=== PATIENT | male | born 1950 | race American Indian/Alaskan Native ===

== ENCOUNTER 2016-04-06 08:14 | Day surgery (SDC) | payer MEDICARE, OTHER ==
[~2016-04-06 08:14] MED LIST: NACL 0.9% 1000 ML 1,000 ML IV SCH; PEPCID PO NR; VERSED IV NR
[2016-04-06] MEDS ORDERED: GARAMYCIN 120 MG in NACL 0.9% 100 ML IV SCH (08:30)
--- NOTE | 2016-04-06 08:52 | Anesthesia Consultation ---
Anesthesia Consult and Med Hx Date of service: 04/06/16 - Airway Anesthetic Teeth Evaluation: Good ROM Head & Neck: Adequate Mental/Hyoid Distance: Adequate Mallampati Class: Class II Intubation Access Assessment: Probably Good - Pulmonary Exam CTA: Yes - Cardiac Exam Cardiac Exam: RRR - Pre-Operative Health Status ASA Pre-Surgery Classification: ASA3 Proposed Anesthetic Plan: General - Pulmonary Hx Smoking: Yes Hx Asthma: No SOB: No Hx Sleep Apnea: No (HIGH RISK) - Cardiovascular System Hx Hypertension: Yes Hx Coronary Artery Disease: No (EF NORMAL AND NEGATIVE STRESS 11/2014) - Central Nervous System Hx Psychiatric Problems: Yes (PTSD/VET) - Endocrine Hx Renal Disease: No Hx Liver Disease: No Hx Non-Insulin Dependent Diabetes: Yes - Hematic Hx Anemia: No Hx Sickle Cell Disease: No - Other Systems Hx Alcohol Use: Yes (2-3 DRINKS WEEKS) Hx Substance Use: No Hx Cancer: No Hx Obesity: Yes (BMI 37)
[2016-04-06] MEDS ORDERED: NACL BACTERIOSTATIC INFILTRATI ONE (09:00)
[2016-04-06] MEDS ORDERED: ANCEF/STERILE WATER 2 GM/20 ML IV NR (09:00)
[2016-04-06] MEDS ORDERED: ZOFRAN IV PRN (09:01)
[2016-04-06] MEDS ORDERED: DILAUDID IV PRN (09:01)
[2016-04-06] MEDS ORDERED: PERCOCET 5/325 PO PRN (09:01)
--- NOTE | 2016-04-06 09:01 | Anesthesia Day of Surgery ---
Anesthesia Day of Surgery - Day of Surgery Patient Examined: Yes Patient H&P Reviewed: Yes Patient is NPO: Yes
[2016-04-06] MEDS ORDERED: SUBLIMAZE ONE (09:40)
[2016-04-06] MEDS ORDERED: XYLOCAINE MPF 2% ONE (09:40)
[2016-04-06] MEDS ORDERED: DIPRIVAN 10 MG/ML IV ONE (09:41)
[2016-04-06] MEDS ORDERED: NEO SYNEPHRINE/NS Syringe(OR USE) IV ONE (10:20)
--- NOTE | 2016-04-06 10:45 | Post Operative Note ---
Pre-op diagnosis: inc psa .. lesions Post-op diagnosis: same Findings: as above Procedure: flex cysto pus bx Anesthesia: GETA Surgeon: YAMILE REED Estimated blood loss: minimal Pathology: list (prostate) Specimen disposition: to lab Condition: stable Disposition: PACU
[2016-04-06] MEDS ORDERED: ePHEDrine SULFATE ONE (11:16)
[2016-04-06] MEDS ORDERED: WATER FOR IRRIG STERILE IR ONE (11:30)
--- NOTE | 2016-04-06 11:43 | Discharge Summary ---
Short Stay Discharge Plan Activity: other (no straining ) Weight Bearing Status: Full Weight Bearing Diet: low fat, low cholesterol, low salt Special Instructions: other (inc fluids ) Durable Medical Equipment Needed Upon Discharge: other (remove winters in [place] ) Follow up with: PRIMARY CARE, [Primary Care Provider] - 7 Days YAMILE REED MD [Staff Physician] - 7 Days
[2016-04-06] MEDS ORDERED: LASIX ONE (12:26)
[2016-04-06] MEDS ORDERED: DECADRON ONE (12:26)
[2016-04-06] MEDS ORDERED: ZOFRAN ONE (12:26)
--- NOTE | 2016-04-06 14:46 | Post Anesthesia Evaluation ---
- Post Anesthesia Evaluation Patient Participated: Yes Airway Patent: Yes Stable Respiratory Function: Yes Nausea/Vomiting: No Temp > 96.8F: Yes Pain Manageable: Yes Adequeate Hydration: Yes Anesthesia Complications: No Block Receding Appropriately: Not Applicable Patient on Ventilator: No
[2016-04-06 15:49] VITALS: BP 124/71
--- NOTE | 2016-04-06 19:47 | Operative Report ---
PREOPERATIVE DIAGNOSES: Elevated PSA, prosthetic lesions on MRI. POSTOPERATIVE DIAGNOSES: Elevated PSA, prosthetic lesions on MRI. PROCEDURE: Ultrasound-guided prostate biopsies based upon MRI guidance and flexible cystoscopy. SURGEON: Kris Mckoy MD ANESTHESIA: General. FINDINGS: This is a gentleman who presented with previous biopsies. He now has lesions now presents for prostate guided ultrasound biopsy. DESCRIPTION OF PROCEDURE: The patient brought to the operating room and placed on the operating room table. Following induction of anesthesia, placed in lithotomy position, prepped and draped in usual sterile fashion. Cystourethroscopy with a flexible scope showed a normal urethra with trilobar hypertrophy with no significant trabeculations. At this point, the ultrasound was placed and good visualization of this was noted. We focused on the biopsies approximately 4.5 cm from the apex, 1.1 cm at the base from the capsule and also the second lesion. There were no other lesions on the right towards the base and a lesion on the left side as well. The patient tolerated the procedure well and there were no significant complications. He had a small amount of blood per rectum during the biopsy, which stopped with some pressure. He has a Diehl catheter that will be removed before he goes home as long as he voids. He had basically 3 lesions, 2 at the right side posterior base, posterior mid and then left mid posterior as well. The patient tolerated the procedure well and brought to recovery room in stable condition. JOB# [id number] BELEN/KELLI
--- NOTE | 2016-04-07 08:32 | Ultrasound Report ---
ULTRASOUND GUIDE INTRAOPERATIVE: HISTORY: Prostate biopsy. FINDINGS: Endorectal ultrasound was provided by radiology during prostate biopsy by urology. The images demonstrate a mildly enlarged prostate gland measuring 5.2 cm in diameter. Prostate biopsy was performed by Dr. Mckoy. IMPRESSION: Successful ultrasound-guided prostate biopsy.
== END 2016-04-06 17:45 | disposition home or self-care (01) ==
LOC: OR 08:14
PROVIDERS: ATTEND Urology
DX: N41.1 Chronic prostatitis (principal); N40.0 Benign prostatic hyperplasia without lower urinary tract symptoms; N42.89 Other specified disorders of prostate; I10 Essential (primary) hypertension; E11.9 Type 2 diabetes mellitus without complications; F43.10 Post-traumatic stress disorder, unspecified; M15.8 Other polyosteoarthritis; E66.9 Obesity, unspecified; Z68.37 Body mass index [BMI] 37.0-37.9, adult; Z72.89 Other problems related to lifestyle; Z87.891 Personal history of nicotine dependence
CPT/HCPCS: 55700; 76998; 82962; 88305; A4217; J0690; J1100; J1170; J1580; J1940; J2250; J2370; J2405; J2704; J3010; J7030